=== PATIENT | male | born 1955 | race Caucasian/White ===

== ENCOUNTER 2018-03-31 17:17 | Emergency (ER) | payer OTHER ==
[~2018-03-31 17:17] MED LIST: CEPHALEXIN500 M1 PO; CRANBERRY1 POW; MEGA MULTIVITAM1 TAB PO; NASACORT OTC NS; VOLTAREN 75 DR75 MG PO
[2018-03-31 17:32] VITALS: TEMP 98.5
[2018-03-31 18:18] LABS: BASO % 0.5 % (0.0-2.0); EOS # 0.2 (0.0-0.7); EOS % 2.2 % (0-4.0); GRAN # 5.4 (1.4-6.5); GRAN % 64.6 % (42.2-75.2); HEMATOCRIT 41.3 % (42.0-52.0); HEMOGLOBIN 13.8 g/dl (13.5-18.0); LYMPH # 2.1 (1.2-3.4); LYMPH % 24.8 % (20.0-51.0); MEAN CELL VOLUME 90 fl (80.0-100.0); MEAN CORPUSCULAR HEMOGLOBIN 30 pg (27.0-31.0); MEAN CORPUSCULAR HGB CONC 33 g/dl (33.0-37.0); MEAN PLATELET VOLUME 9.5 fl (7.4-10.4); MONO # 0.6 (0.1-0.6); MONO % 7.5 % (1.7-9.3); PLATELET COUNT 301 K/mm3 (130-400); REDCELL DISTRIBUTION WIDTH-CV 13.1 % (11.5-14.5)
[2018-03-31 18:21] LABS: INR 1.1 (0.8-3.0); PROTHROMBIN TIME 12.2 SECONDS (9.7-12.8)
[2018-03-31 18:28] LABS: BILIRUBIN,TOTAL 1.3 mg/dL (0.0-1.0); CALCIUM 9.5 mg/dL (8.4-10.2); CREATININE, serum 1.23 mg/dL (0.66-1.25); POTASSIUM 3.8 mmol/L (3.4-5.0); TOTAL PROTEIN 7.5 gm/dL (6.4-8.2)
[2018-03-31] MEDS ORDERED: MEDROL 4MG DOSPA4 MG PO ×2 (19:14→19:45)
[2018-03-31] MEDS ORDERED: PRINIVIL20 MG PO (19:16)
[2018-03-31 19:24] VITALS: BP 165/111; PULSE 85
== END 2018-03-31 19:16 | disposition home or self-care (01) ==
LOC: COL.ER 17:17
PROVIDERS: Physician Assistant
DX: M66.0 Rupture of popliteal cyst (principal); M79.89 Other specified soft tissue disorders

== ENCOUNTER 2018-10-07 11:00 | Emergency (ER) | payer OTHER ==
[~2018-10-07] VITALS: Ht 172.7 cm; Wt 97.7 kg
[~2018-10-07 11:00] MED LIST changes: +MEDROL 4MG DOSPA4 MG PO; +PRINIVIL20 MG PO
[2018-10-07 11:17] VITALS: BP 129/79; PULSE 88; TEMP 97.7
[2018-10-07] MEDS ORDERED: HYGROTON 2525 MG/TAB PO (11:21)
[2018-10-07] MEDS ORDERED: ASPIRIN E.C. 8181 MG PO (11:22)
[2018-10-07] MEDS ORDERED: MEDROL 4MG DOSPA4 MG PO (11:46)
== END 2018-10-07 12:09 | disposition home or self-care (01) ==
LOC: COL.ER 11:00
DX: M54.17 Radiculopathy, lumbosacral region (principal); I10 Essential (primary) hypertension; Z98.890 Other specified postprocedural states; Z79.82 Long term (current) use of aspirin